=== PATIENT | male | born 1990 | race Caucasian/White ===

== ENCOUNTER 2024-01-15 21:48 | Emergency (ER) | payer OTHER ==
[2024-01-15] MEDS: Acetaminophen 500 MG Tab PO ONE (22:07)
[2024-01-15] MEDS: Ibuprofen 400 MG Tab PO ONE (23:02)
== END 2024-01-15 23:10 | disposition home or self-care (01) ==
LOC: MW.ED 21:48
DX: S06.0X0A Concussion without loss of consciousness, initial encounter (principal); S16.1XXA Strain of muscle, fascia and tendon at neck level, initial encounter; S30.0XXA Contusion of lower back and pelvis, initial encounter; I10 Essential (primary) hypertension; E11.9 Type 2 diabetes mellitus without complications; Z79.899 Other long term (current) drug therapy; Z79.84 Long term (current) use of oral hypoglycemic drugs; Z88.0 Allergy status to penicillin; W17.89XA Other fall from one level to another, initial encounter
CPT/HCPCS: 70450; 72125; 72131; 99283; A9270; 99284